=== PATIENT | female | born 1990 | race Caucasian/White ===

== ENCOUNTER 2019-09-20 09:54 | Outpatient (CLI) | payer OTHER ==
[~2019-09-20] VITALS: Ht 154.9 cm; Wt 92.2 kg
[2019-09-20 10:31] VITALS: BP 126/86
[2019-09-20 10:46] LABS: MICROSCOPIC INDICATED
[2019-09-20] MEDS ORDERED: ACETAMINOPHEN 500 MG TABLET PO ONE (11:30)
[2019-09-20] MEDS ORDERED: ACETAMINOPHEN 500 MG TABLET ONE (11:56)
[2019-09-20] MEDS ORDERED: CYCLOBENZAPRINE 10 MG TABLET PO ONE (14:00)
[2019-09-20] MEDS ORDERED: CYCL-259 PO (14:13)
== END 2019-09-20 14:10 | disposition home or self-care (01) ==
LOC: LDOP 09:54
PROVIDERS: ATTEND Obstetrics & Gynecology
DX: O99.89 Other specified diseases and conditions complicating pregnancy, childbirth and the puerperium (principal); O26.893 Other specified pregnancy related conditions, third trimester; N13.30 Unspecified hydronephrosis; Z3A.40 40 weeks gestation of pregnancy
CPT/HCPCS: 59025; 76770; 81001; 87086; 99211; G0463